=== PATIENT | female | born 1960 | race Hispanic/Latino ===

== ENCOUNTER 2018-07-23 11:27 | Emergency (ER) | payer OTHER ==
[2018-07-23 11:47] VITALS: BMI 34.9
[2018-07-23 11:51] VITALS: BP 142/80; PULSE 109; RESP 16; TEMP 97.8; O2SAT 95
[2018-07-23] MEDS ORDERED: TDAP Vaccine 0.5 mL Syr IM ONE (12:30)
--- NOTE | 2018-07-23 12:36 | ED PDOC ---
Arrival/HPI - General Chief Complaint: Trauma Time Seen by Provider: 07/23/18 11:28 Historian: Patient - History of Present Illness Narrative History of Present Illness (Text): 07/23/18 12:03 57 year old female, with past medical history of hypertension, presents to the ED for evaluation of left wrist pain s/p mechanical fall in shower prior to arrival. Patient states sustaining pain to the left wrist while trying to break the fall with her left hand, prompting her to present to the ED for medical evaluation. Patient denies any head injury or loss of consciousness at the time. Patient informs mild laceration to right elbow but denies any other associated somatic complaints. Patient denies any fevers, chills, headache, dizziness, chest pain, shortness of breath, dyspnea on exertion, cough, abdominal pain, nausea, vomiting, diarrhea, back pain, neck pain, or any other complaints. Patient states her last tetanus shot was more than 5 years ago. Time/Duration: Prior to Arrival Symptom Onset: Sudden Symptom Course: Unchanged Activities at Onset: Light Context: Other (Shower) Past Medical History - Provider Review Nursing Documentation Reviewed: Yes - Infectious Disease Hx of Infectious Diseases: None - Reproductive Menopause: Yes (6 yrs ago) - Cardiac Hx Cardiac Disorders: Yes Hx Hypertension: Yes - Pulmonary Hx Respiratory Disorders: No - Neurological Hx Neurological Disorder: No - HEENT Hx HEENT Disorder: No - Renal Hx Renal Disorder: No - Endocrine/Metabolic Hx Endocrine Disorders: No - Hematological/Oncological Hx Blood Disorders: No - Integumentary Hx Dermatological Disorder: No - Musculoskeletal/Rheumatological Hx Musculoskeletal Disorders: No - Gastrointestinal Hx Gastrointestinal Disorders: No - Genitourinary/Gynecological Hx Genitourinary Disorders: No - Psychiatric Hx Psychophysiologic Disorder: No Hx Substance Use: No - Anesthesia Hx Anesthesia: No Hx Anesthesia Reactions: No Hx Malignant Hyperthermia: No Family/Social History - Physician Review Nursing Documentation Reviewed: Yes Family/Social History: Unknown Family HX Smoking Status: Current Some Days Smoker Hx Alcohol Use: No Hx Substance Use: No Allergies/Home Meds Allergies/Adverse Reactions: Allergies No Known Allergies Allergy (Verified 07/23/18 11:52) Review of Systems - Physician Review All systems were reviewed & negative as marked: Yes - Review of Systems Constitutional: absent: Fevers Eyes: absent: Vision Changes Respiratory: absent: SOB, Cough Cardiovascular: absent: Chest Pain, REYES Gastrointestinal: absent: Abdominal Pain, Diarrhea, Nausea, Vomiting Genitourinary Female: absent: Dysuria, Urine Output Changes Musculoskeletal: Arthralgias (left wrist pain). absent: Back Pain, Neck Pain Skin: Laceration (Right elbow). absent: Rash Neurological: absent: Headache, Dizziness Psychiatric: absent: Anxiety Physical Exam Vital Signs Reviewed: Yes Vital Signs Temp Pulse Resp BP Pulse Ox 07/23/18 11:50 97.8 F 109 H 16 142/80 95 Temperature: Afebrile Blood Pressure: Normal Pulse: Tachycardic Respiratory Rate: Normal Appearance: Positive for: Well-Appearing, Non-Toxic, Comfortable Pain Distress: None Mental Status: Positive for: Alert and Oriented X 3 - Systems Exam Head: Present: Atraumatic, Normocephalic Pupils: Present: PERRL Extroacular Muscles: Present: EOMI Conjunctiva: Present: Normal Neck: Present: Normal Range of Motion. No: MIDLINE TENDERNESS, Paraspinal Tenderness Respiratory/Chest: Present: Clear to Auscultation, Good Air Exchange. No: Respiratory Distress, Accessory Muscle Use Cardiovascular: Present: Regular Rate and Rhythm, Normal S1, S2. No: Murmurs Abdomen: No: Tenderness, Distention, Peritoneal Signs Back: Present: Normal Inspection. No: Midline Tenderness, Paraspinal Tenderness Upper Extremity: Present: NORMAL PULSES, Swelling (Swelling to dorsal aspect of left wrist), Neurovascularly Intact, Capillary Refill < 2s, Other (Closed laceration appreciated to right elbow). No: Cyanosis, Edema Lower Extremity: Present: Normal Inspection. No: Edema Neurological: Present: GCS=15, Speech Normal Skin: Present: Warm, Dry, Normal Color. No: Rashes Psychiatric: Present: Alert, Oriented x 3, Normal Insight, Normal Concentration Medical Decision Making ED Course and Treatment: 07/23/18 12:10 Impression: 57 year old female presents to the ED for evaluation of left wrist pain s/p mechanical fall. Differential Diagnosis included but are not limited to: -- Left wrist fracture Plan: -- TDAP -- Tylenol -- Motrin -- X-ray of Left Wrist -- Reassess and disposition Prior Visits: Notes and results from previous visits were reviewed. Progress Notes: 07/23/18 13:05 PROCEDURE: LACERATION REPAIR Performed by the vice president network under supervision of the emergency provider Location: Right Elbow Length: 1.5 cm Description: clean wound edges, no foreign bodies Distal CMS: Normal. No deficits. Neurovascularly intact. Anesthesia: Lidocaine 1% Preparation: The wound was cleaned with NS and [place]. The area was prepped and draped in the usual sterile fashion. Exploration: The wound was explored and no foreign bodies were found. Procedure: The wound was closed with nylon. There was good approximation. In total, 2 sutures were used. Post-Procedure: Good closure and hemostasis. The patient tolerated the procedure well and there were no complications. CSM remains intact. Post procedure d ressing applied. - RAD Interpretation Radiology Orders: 07/23/18 11:56 WRIST, LEFT 3 VIEWS [RAD] Stat - Medication Orders Current Medication Orders: Discontinued Medications Acetaminophen (Tylenol 325mg Tab) 975 mg PO STAT STA Stop: 07/23/18 12:04 Last Admin: 07/23/18 12:22 Dose: 975 mg [facility] Pain/Vitals Document 07/23/18 12:22 BB (Rec: 07/23/18 12:22 BB [id number]) Pain Reassessment Is This A Pain ReAssessment? No Sleep Is patient sleeping during reassessment? No Presence of Pain Presence of Pain Yes Pain Scale Used Protocol: [facility] Scale Used Numeric Location Left, Right or Bilateral Left Pain Location Body Site Wrist Description Constant Throbbing Intensity 8 Pain Behavior Grasping Site Rubbing Site Restlessness Facial Grimacing Ibuprofen (Motrin Tab) 600 mg PO STAT STA Stop: 07/23/18 12:04 Last Admin: 07/23/18 12:20 Dose: 600 mg MAR Pain/Vitals Document 07/23/18 12:20 BB (Rec: 07/23/18 12:21 BB [id number]) Pain Reassessment Is This A Pain ReAssessment? No Sleep Is patient sleeping during reassessment? No Presence of Pain Presence of Pain Yes Pain Scale Used Protocol: PSCALES Pain Scale Used Numeric Location Left, Right or Bilateral Left Pain Location Body Site Wrist Description Constant Throbbing Intensity 8 Scale Used Numeric Pain Behavior Rubbing Site Restlessness Facial Grimacing Alleviating Factors Inactivity Tetanus/Reduced Diphtheria/Acell Pertussis (Boostrix Vaccine Inj) 0.5 ml IM . ONCE ONE Stop: 07/23/18 12:31 - Scribe Statement The provider has reviewed the documentation as recorded by the Scribe Hafsa Vieira. All medical record entries made by the Scribe were at my direction and personally dictated by me. I have reviewed the chart and agree that the record accurately reflects my personal performance of the history, physical exam, medical decision making, and the department course for this patient. I have also personally directed, reviewed, and agree with the discharge instructions and disposition. Disposition/Present on Arrival - Present on Arrival Any Indicators Present on Arrival: No History of DVT/PE: No History of Uncontrolled Diabetes: No Urinary Catheter: No History of Decub. Ulcer: No History Surgical Site Infection Following: None - Disposition Have Diagnosis and Disposition been Completed?: Yes Diagnosis: Left wrist sprain, Fall, Elbow laceration Disposition: HOME/ ROUTINE Disposition Time: 13:34 Patient Plan: Discharge Condition: IMPROVED Discharge Instructions (ExitCare): Wrist Sprain (DC), Wound Care (DC), Laceration Repair With Stitches (DC) Print Language: TONGAN Additional Instructions: All medical record entries made by the Scribe were at my direction and personally dictated by me. I have reviewed the chart and agree that the record accurately reflects my personal performance of the history, physical exam, medical decision making, and the department course for this patient. I have also personally directed, reviewed, and agree with the discharge instructions and disposition. Please follow up with your PCP in 1 week Please return to ED for removal of sutures in 5-7 days Referrals: Margarito Mcclendon MD [Primary Care Provider] - Follow up with primary Forms: [place] (Irish)
--- NOTE | 2018-07-23 12:57 | RAD ---
Date of service: 07/23/2018 PROCEDURE: Left Wrist Radiographs. HISTORY: s/p fall w/ swelling to the wrist COMPARISON: None. FINDINGS: BONES: Normal. No fracture. JOINTS: Normal. No dislocation. SOFT TISSUES: Normal. OTHER FINDINGS: None. IMPRESSION: Normal left wrist radiographs.
== END 2018-07-23 13:51 | disposition home or self-care (01) ==
LOC: ED 11:27
DX: S51.011A Laceration without foreign body of right elbow, initial encounter (principal); S63.502A Unspecified sprain of left wrist, initial encounter; W18.2XXA Fall in (into) shower or empty bathtub, initial encounter; Y93.E1 Activity, personal bathing and showering; Y92.002 Bathroom of unspecified non-institutional (private) residence as the place of occurrence of the external cause; Z23 Encounter for immunization